=== PATIENT | female | born 1990 | race Two or more races ===

== ENCOUNTER → 2023-08-10 | Emergency (ER) | payer MEDICAID, OTHER ==
[~2023-08-10] VITALS: Ht 160 cm; Wt 99.8 kg
[~2023-08-10] MED LIST: IBUPROFEN 400 MG TABLET PO ONE
[2023-08-10 01:53] VITALS: TEMP 98.2
[2023-08-10 02:39] VITALS: BP 138/72; O2SAT 99
== END ==
LOC: ER 01:47
DX: S09.8XXA Other specified injuries of head, initial encounter (principal); W22.8XXA Striking against or struck by other objects, initial encounter; Y93.89 Activity, other specified; Y92.89 Other specified places as the place of occurrence of the external cause; Y99.8 Other external cause status
CPT/HCPCS: 70450-TC